=== PATIENT | female | born 1985 | race Caucasian/White ===

== ENCOUNTER 2017-10-10 00:25 | Inpatient (IN) | payer OTHER ==
[~2017-10-10] VITALS: Ht 160 cm; Wt 58.0 kg
[2017-10-10 00:30] VITALS: Ht 160 cm; Wt 58.0 kg
[2017-10-10 03:50] LABS: BASOPHIL % 0.4 % (0-2); PLATELET COUNT 220 x10^3mcL (130-400); RED CELL DISTRIBUTION WIDTH 13.9 % (11.5-14.5)
[2017-10-10 04:03] LABS: CALCIUM 8.8 mg/dL (8.5-10.1); CHLORIDE SERUM 103 mmol/L (98-107); CREATININE SERUM 0.8 mg/dL (0.6-1.0); GFR1 > 60 mL/min; GLUCOSE SERUM 116 mg/dL (74-106); POTASSIUM SERUM 3.4 mmol/L (3.5-5.1); SODIUM SERUM 138 mmol/L (136-145)
[2017-10-10 04:14] LABS: ALBUMIN 4.1 g/dL (3.4-5.0); ALKALINE PHOSPHATASE 57 U/L (46-116); ALT/SGPT 19 U/L (14-59); AST/SGOT 13 U/L (15-37); BILIRUBIN TOTAL 0.4 mg/dL (0.20-1.00); FREE T4 1.12 ng/dL (0.76-1.46); MAGNESIUM 2.1 mg/dL (1.8-2.4)
[2017-10-10 04:15] LABS: TOTAL PROTEIN, SERUM 8.3 g/dL (6.4-8.2)
[2017-10-10 04:40] LABS: microscopic required? YES; urine erythrocyte 1+ (NEGATIVE)
[2017-10-10 04:50] LABS: AMPHETAMINE QUAL UR NONE DETECTED (NEG <=1000)
[2017-10-10 07:47] LABS: CHOLESTEROL/HDL RATIO 3.3; PHOSPHOROUS 2.4 mg/dL (2.5-4.9)
[2017-10-10 07:51] LABS: T3 TOTAL 0.98 ng/mL
[2017-10-10 08:11] LABS: FREE T4 1.14 ng/dL (0.76-1.46); FREE THYROXINE INDEX 2.9 ug/dL (1.4-4.5); T4(THYROXINE) 8.4 ug/dL (4.7-13.3)
[2017-10-10] MEDS ORDERED: ZOLOFT25 MG PO (10:25)
[2017-10-10] MEDS ORDERED: LORAZEPAM0.5 MG PO (10:25)
[2017-10-10 10:39] VITALS: BP 114/68
[2017-10-10 11:12] VITALS: BP 118/70
[2017-10-10 13:13] VITALS: BP 123/72
[2017-10-10 17:41] VITALS: BP 117/72
[2017-10-10 20:00] VITALS: BP 118/69
[2017-10-11 05:01] VITALS: BP 109/62
[2017-10-11 06:11] LABS: BASOPHIL % 0.5 % (0-2); PLATELET COUNT 212 x10^3mcL (130-400)
[2017-10-11 06:26] LABS: RED CELL DISTRIBUTION WIDTH 14.6 % (11.5-14.5)
[2017-10-11 06:48] LABS: CALCIUM 8.2 mg/dL (8.5-10.1); CARBON DIOXIDE 23.9 mmol/L (21-32); CHLORIDE SERUM 106 mmol/L (98-107); CREATININE SERUM 0.7 mg/dL (0.6-1.0); GFR1 > 60 mL/min; GLUCOSE SERUM 83 mg/dL (74-106); PHOSPHOROUS 3.5 mg/dL (2.5-4.9); POTASSIUM SERUM 3.6 mmol/L (3.5-5.1); SODIUM SERUM 139 mmol/L (136-145)
[2017-10-11 09:07] VITALS: BP 114/63
[2017-10-11] MEDS ORDERED: TOPROL XL25 MG PO (11:49)
[2017-10-11 12:09] VITALS: BP 114/63
== END 2017-10-11 13:26 | disposition home or self-care (01) | DRG 880 ==
LOC: ED 00:25 → DU 06:36
PROVIDERS: Emergency Medicine; Family Medicine
DX: F41.0 Panic disorder [episodic paroxysmal anxiety] (principal); N17.0 Acute kidney failure with tubular necrosis; R00.0 Tachycardia, unspecified; F41.1 Generalized anxiety disorder; E86.0 Dehydration; R31.9 Hematuria, unspecified; J45.909 Unspecified asthma, uncomplicated; Z68.23 Body mass index [BMI] 23.0-23.9, adult
CPT/HCPCS: 83880; 84439; G0480; J7030; Q0092